=== PATIENT | male | born 1945 | race Caucasian/White ===

== ENCOUNTER 2017-02-08 15:17 | Emergency (ER) | payer MEDICARE, BC ==
[2017-02-08] MEDS ORDERED: Bupivacaine 0.5% 30 ML SDV INFILT ONE (16:01)
[2017-02-08 16:51] VITALS: BP 141/73
--- NOTE | 2017-02-08 16:55 | EDM.PDOC ---
[id number] 4d CUT OFF TIP OF FINGER Time Seen by Provider: 02/08/17 16:00 Source of Information: Reports: Patient History Limitations: Reports: No Limitations - History of Present Illness INITIAL COMMENTS - FREE TEXT/NARRATIVE: 72-year-old male cut the end of his middle finger of the left hand off with a band saw. It happened within the last hour. Total circumferential laceration is 3 cm, the distal finger is completely amputated. Onset: Today Location: Reports: Upper Extremity, Left Severity: Moderate Associated Symptoms: Reports: No Other Symptoms - Related Data Allergies Allergy/AdvReac Type Severity Reaction Status Date / Time iodine Allergy Hives Verified 01/15/15 08:22 shellfish derived Allergy Hives Verified 08/03/13 07:42 Home Meds: Home Meds Aspirin 325 mg PO DAILY 07/25/13 [History] Clopidogrel [Plavix] 75 mg PO DAILY 07/25/13 [History] Ezetimibe [Zetia] 10 mg PO DAILY 07/25/13 [History] Metoprolol Succinate [Toprol XL] 25 mg PO DAILY 07/25/13 [History] atorvaSTATin [Lipitor] 40 mg PO BEDTIME 07/25/13 [History] Past Medical History Endocrine/Metabolic History: Reports: Diabetes, Type II - Past Surgical History Cardiovascular Surgical History: Reports: Coronary Artery Bypass Social & Family History - Tobacco Use Smoking Status *Q: Never Smoker Years of Tobacco use: 30 Used Tobacco, but Quit: Yes Month Tobacco Last Used: 05/2000 Second Hand Smoke Exposure: No - Alcohol Use Days Per Week of Alcohol Use: 0 - Recreational Drug Use Recreational Drug Use: No ED ROS GENERAL - Review of Systems Review Of Systems: ROS reveals no pertinent complaints other than HPI. ED EXAM, SKIN/RASH Exam: See Below Exam Limited By: No Limitations General Appearance: Alert, No Apparent Distress Respiratory/Chest: No Respiratory Distress Cardiovascular: Regular Rate, Rhythm Extremities: Other (Remainder of exam is limited to left hand. The patient has a complete amputation of the distal middle finger at the level of the mid fingernail just at the tip of the distal phalanx.) Course - Vital Signs Last Recorded V/S: Last Vital Signs Temp 97.5 F 02/08/17 15:30 Pulse 68 02/08/17 15:30 Resp 16 02/08/17 15:30 BP 141/73 H 02/08/17 15:30 Pulse Ox 97 02/08/17 15:30 - Orders/Labs/Meds Meds: Medications Discontinued Medications Generic Name Dose Route Start Last Admin Trade Name Kelvin PRN Reason Stop Dose Admin Bupivacaine HCl 30 ml 02/08/17 16:01 02/08/17 16:07 Marcaine 0.5% INFILT 02/08/17 16:02 30 ml ONETIME ONE Administration - Re-Assessments/Exams Free Text/Narrative Re-Assessment/Exam: 02/08/17 16:53 The distal finger was anesthetized with 0.5% Marcaine in a digital block fashion. The amputated piece of finger and the stump were washed thoroughly with saline, the distal piece of nail was removed from the nailbed, and using 8 4-0 Ethilon sutures the amputated piece was approximated on the end of the finger as close as possible to its natural position. The patient was placed on cephalexin 500 mg 3 times a day for the next 12 days, a tube gauze was placed over the finger after a covering of bacitracin and the patient will keep the stitches on for at least 2 weeks. A recheck later in the clinic this week may be worthwhile. Departure - Departure Time of Disposition: 17:04 Disposition: Home, Self-Care 01 Condition: Good Clinical Impression: Laceration of finger of left hand with damage to nail Qualifiers: Encounter type: initial encounter Finger: middle finger Foreign body presence: without foreign body Qualified Code(s): S61.313A - Laceration without foreign body of left middle finger with damage to nail, initial encounter - Discharge Information Instructions: Traumatic Finger Amputation Referrals: Bruce Salvador MD [Primary Care Provider] - Forms: ED Department Discharge Care Plan Goals: Keep wound covered and clean while healing. Take antibiotics 3 times a day until gone, and have the sutures removed in 2 weeks. Soak the finger in warm water once daily and continue daily aspirin. Use stronger pain medication if needed as prescribed. Return sooner if concerns of infection or not healing satisfactorily.
== END 2017-02-08 17:05 | disposition home or self-care (01) ==
LOC: JP.ED 15:17
DX: S61.313A Laceration without foreign body of left middle finger with damage to nail, initial encounter (principal); E11.9 Type 2 diabetes mellitus without complications; Z91.09 Other allergy status, other than to drugs and biological substances; Z91.013 Allergy to seafood; Z79.899 Other long term (current) drug therapy; Z95.1 Presence of aortocoronary bypass graft; W26.8XXA Contact with other sharp object(s), not elsewhere classified, initial encounter
CPT/HCPCS: 13132; 99283-25

== ENCOUNTER 2017-02-23 08:00 | Emergency (ER) | payer MEDICARE, BC ==
[2017-02-23 08:10] VITALS: BP 170/81
--- NOTE | 2017-02-23 08:28 | EDM.PDOC ---
ED HPI GENERAL MEDICAL PROBLEM - General Chief Complaint: Wound Recheck Stated Complaint: REMOVE STITCHES Time Seen by Provider: 02/23/17 08:28 Source of Information: Reports: Patient History Limitations: Reports: No Limitations - History of Present Illness INITIAL COMMENTS - FREE TEXT/NARRATIVE: pt returnd for stitch removal He has noted that the tip that was sewed back on looks dark. Duration: Day(s): Associated Symptoms: Reports: Other (pt is hre for stitch removal. ) Denies Pain Score (Numeric/FACES): 0 - Related Data Allergies Allergy/AdvReac Type Severity Reaction Status Date / Time iodine Allergy Hives Verified 02/23/17 08:09 shellfish derived Allergy Hives Verified 02/23/17 08:09 Home Meds: Home Meds Aspirin 325 mg PO DAILY 07/25/13 [History] Clopidogrel [Plavix] 75 mg PO DAILY 07/25/13 [History] Ezetimibe [Zetia] 10 mg PO DAILY 07/25/13 [History] Metoprolol Succinate [Toprol XL] 25 mg PO DAILY 07/25/13 [History] atorvaSTATin [Lipitor] 40 mg PO BEDTIME 07/25/13 [History] Past Medical History Endocrine/Metabolic History: Reports: Diabetes, Type II - Infectious Disease History Infectious Disease History: Reports: Chicken Pox, Measles, Mumps - Past Surgical History Cardiovascular Surgical History: Reports: Coronary Artery Bypass Social & Family History - Tobacco Use Smoking Status *Q: Former Smoker Years of Tobacco use: 30 Used Tobacco, but Quit: Yes Month Tobacco Last Used: 05/2000 Second Hand Smoke Exposure: No - Alcohol Use Days Per Week of Alcohol Use: 0 - Recreational Drug Use Recreational Drug Use: No ED ROS GENERAL - Review of Systems Review Of Systems: See Below Constitutional: Reports: No Symptoms HEENT: Reports: No Symptoms Musculoskeletal: Reports: Other ( stitches to be removed from the left middle finger. ) ED EXAM, SKIN/RASH Exam: See Below Text/Narrative:: pt arrived with part of the flap that was sewed back on turning black and he needs the stitches removed. Exam Limited By: No Limitations General Appearance: Alert Extremities: Other (left middle finger has stitches to be removed. the flap that was sewd back on lookd dark and is slightly smelly. There is no pus like drainage. ) Course - Vital Signs Last Recorded V/S: Last Vital Signs Temp 35.4 C 02/23/17 08:15 Pulse 65 02/23/17 08:15 Resp 16 02/23/17 08:15 BP 170/81 H 02/23/17 08:15 Pulse Ox 96 02/23/17 08:15 - Re-Assessments/Exams Free Text/Narrative Re-Assessment/Exam: 02/23/17 08:34 stitches were removed without difficulty. Pt was advised to soak twice daily and the dark area will gradually peel off. Departure - Departure Time of Disposition: 08:27 Disposition: Home, Self-Care 01 Condition: Fair Clinical Impression: Visit for suture removal - Discharge Information Instructions: Suture Removal, Care After Referrals: Bruce Salvador MD [Primary Care Provider] - Forms: ED Department Discharge Care Plan Goals: soak twice daily and gradually allow the dark looking area to peal off.
== END 2017-02-23 08:34 | disposition home or self-care (01) ==
LOC: JP.ED 08:00
DX: S61.313D Laceration without foreign body of left middle finger with damage to nail, subsequent encounter (principal); W31.2XXD Contact with powered woodworking and forming machines, subsequent encounter; W45.8XXD Other foreign body or object entering through skin, subsequent encounter
CPT/HCPCS: 99282

== ENCOUNTER 2021-01-03 11:32 | Emergency (ER) | payer BC, MEDICARE, OTHER | END 2021-01-03 13:00 | disposition left against medical advice (07) | LOC: JP.ED 11:32 | DX: Z53.21 Procedure and treatment not carried out due to patient leaving prior to being seen by health care provider (principal) ==

== ENCOUNTER 2021-08-26 18:46 | Emergency (ER) | payer MEDICARE ==
[2021-08-26] MEDS ORDERED: Bacitracin Oint 1 GM U/D Packet TOP ONE (19:17)
[2021-08-26 19:19] VITALS: BP 162/73; PULSE 78
[2021-08-26] MEDS ORDERED: ceFAZolin 1 GM Vial IM ONE (19:36)
[2021-08-26] MEDS ORDERED: Diphtheria,Pertussis(Acell),Tetanus Vaccine 0.5 ML Syringe IM ONE (19:38)
== END 2021-08-26 20:31 | disposition home or self-care (01) ==
LOC: JP.ED 18:46
DX: S68.522A Partial traumatic transphalangeal amputation of left thumb, initial encounter (principal); E11.9 Type 2 diabetes mellitus without complications; Z23 Encounter for immunization; Z91.013 Allergy to seafood; Z88.8 Allergy status to other drugs, medicaments and biological substances; W27.0XXA Contact with workbench tool, initial encounter
CPT/HCPCS: 73140-26-FA; 73140-FA; 90471; 90715; 96372; 99283; J0690

== ENCOUNTER 2022-09-27 15:09 | Emergency (ER) | payer MEDICARE ==
[2022-09-27 15:59] VITALS: PULSE 36
[2022-09-27 16:49] VITALS: BP 135/51
[2022-09-27 16:59] LABS: ESTIMATED GFR 56 mL/min (>60); TROPONIN I HIGH SENSITIVITY 13.8 pg/mL (<=60.3)
== END 2022-09-27 17:41 | disposition home or self-care (01) ==
LOC: JP.ED 15:09
DX: R10.13 Epigastric pain (principal); I10 Essential (primary) hypertension; I25.10 Atherosclerotic heart disease of native coronary artery without angina pectoris; E11.9 Type 2 diabetes mellitus without complications; Z87.891 Personal history of nicotine dependence; Z79.899 Other long term (current) drug therapy; Z91.030 Bee allergy status; Z91.041 Radiographic dye allergy status
CPT/HCPCS: 36415; 80053; 83605; 84484; 85025; 93005; 99284

== ENCOUNTER 2022-12-05 14:07 | Emergency (ER) | payer MEDICARE ==
[2022-12-05 14:39] LABS: BASOPHILS ABSOLUTE AUTO 0.04 K/uL (0.00-0.10); BASOPHILS PERCENT AUTO 0.5 % (0.1-1.3); EOSINOPHILS ABSOLUTE AUTO 0.07 K/uL (0.00-0.40); EOSINOPHILS PERCENT AUTO 0.9 % (0.0-5.4); HEMATOCRIT 30.8 % (38.4-49.7); HEMOGLOBIN 9.9 g/dL (12.9-16.9); IMMATURE GRAN ABSOLUTE AUTO 0.04 K/uL (0.00-0.23); IMMATURE GRAN PERCENT AUTO 0.5 % (0.0-0.7); MEAN CORPUSCULAR HEMOGLOBIN 30.5 pg (31.6-35.5); MEAN CORPUSCULAR HGB CONC 32.1 g/dL (31.6-35.5); MEAN CORPUSCULAR VOLUME 94.8 fL (81.4-99.0); MONOCYTES ABSOLUTE AUTO 0.55 K/uL (0.20-0.90); MONOCYTES PERCENT AUTO 7.2 % (3.3-12.6); NEUTROPHILS ABSOLUTE AUTO 5.65 K/uL (1.0-7.6); NEUTROPHILS PERCENT AUTO 73.9 % (40.0-78.1); PLATELET COUNT,PLT 240 K/uL (130-375); RED BLOOD CELL COUNT 3.25 M/uL (4.14-5.76); WHITE BLOOD CELL COUNT,WBC 7.7 K/uL (3.2-11.0)
[2022-12-05 15:03] LABS: CALCIUM 8.7 mg/dL (8.5-10.1); CREATININE 1.3 mg/dL (0.8-1.3); EST CRCL DRUG DOSING (CG) 44.58 mL/min; POTASSIUM,K 4.8 mmol/L (3.6-5.2); TROPONIN I HIGH SENSITIVITY 21.9 pg/mL (<=60.3)
[2022-12-05 15:05] LABS: ANION GAP 12.8 mmol/L (5.0-14.0)
[2022-12-05 15:11] VITALS: BP 105/46; PULSE 84
== END 2022-12-05 15:50 | disposition home or self-care (01) ==
LOC: JP.ED 14:07
DX: R07.89 Other chest pain (principal); I25.10 Atherosclerotic heart disease of native coronary artery without angina pectoris; E78.00 Pure hypercholesterolemia, unspecified; I10 Essential (primary) hypertension; E11.9 Type 2 diabetes mellitus without complications; Z91.030 Bee allergy status; Z91.041 Radiographic dye allergy status; Z79.02 Long term (current) use of antithrombotics/antiplatelets; Z87.891 Personal history of nicotine dependence
CPT/HCPCS: 36415; 80048; 84484; 85025; 93005; 99285

== ENCOUNTER 2025-07-12 15:50 | Inpatient (IN) | payer MEDICARE ==
[2025-07-12] MEDS: Diltiazem 100 MG in Sodium Chloride 0.9% 100 ML IV SCH (16:49)
[2025-07-12] MEDS: Diltiazem 25 MG/5 ML SDV IVPUSH ONE (16:49)
[2025-07-12 17:11] LABS: BASOPHILS ABSOLUTE AUTO 0.06 K/uL (0.00-0.10); BASOPHILS PERCENT AUTO 0.8 % (0.1-1.3); EOSINOPHILS ABSOLUTE AUTO 0.25 K/uL (0.00-0.40); EOSINOPHILS PERCENT AUTO 3.3 % (0.0-5.4); IMMATURE GRAN ABSOLUTE AUTO 0.03 K/uL (0.00-0.23); IMMATURE GRAN PERCENT AUTO 0.4 % (0.0-0.7); LYMPHOCYTES ABSOLUTE AUTO 2.46 K/uL (0.8-3.3); LYMPHOCYTES PERCENT AUTO 32.0 % (11.4-47.7); MONOCYTES ABSOLUTE AUTO 0.74 K/uL (0.20-0.90); MONOCYTES PERCENT AUTO 9.6 % (3.3-12.6); NEUTROPHILS ABSOLUTE AUTO 4.14 K/uL (1.0-7.6); NEUTROPHILS PERCENT AUTO 53.9 % (40.0-78.1); PLATELET COUNT,PLT 350 K/uL (130-375); RED BLOOD CELL COUNT 4.87 M/uL (4.14-5.76); WHITE BLOOD CELL COUNT,WBC 7.7 K/uL (3.2-11.0)
[2025-07-12 17:25] LABS: A/G RATIO 1.0 (1.2-2.2); ALANINE AMINOTRANSFERASE,ALT 29 U/L (12-78); ASPARTATE AMNIOTRANSFERASE,AST 19 U/L (15-37); BILIRUBIN TOTAL 0.5 mg/dL (0.2-1.0); BLOOD UREA NITROGEN,BUN 34 mg/dL (7-18); CARBON DIOXIDE,CO2 26 mmol/L (21-32); CHLORIDE,CL 100 mmol/L (100-108); CREATININE 1.5 mg/dL (0.8-1.3); EST CRCL DRUG DOSING (CG) 36.73 mL/min; ESTIMATED GFR 46 mL/min (>60); GLUCOSE RANDOM 132 mg/dL (74-106); POTASSIUM,K 4.2 mmol/L (3.6-5.2); PROTEIN TOTAL,TP 8.2 g/dL (6.4-8.2); SODIUM,NA 137 mmol/L (140-148); TROPONIN I HIGH SENSITIVITY 17.4 pg/mL (<=60.3)
[2025-07-13] MEDS ORDERED: Magnesium Hydroxide 400 MG/5 ML Susp 30 ML Cup PO PRN (07:48)
[2025-07-13] MEDS ORDERED: Sennosides/Docusate Sodium 50-8.6 MG Tab PO PRN (07:48)
[2025-07-13] MEDS ORDERED: Ondansetron 4 MG Tab.DIS PO PRN (07:48)
[2025-07-13] MEDS ORDERED: Ondansetron 4 MG/2 ML SDV IV PRN (07:48)
[2025-07-13 09:00] LABS: TROPONIN I HIGH SENSITIVITY 4119.5 pg/mL (<=60.3)
[2025-07-13] MEDS: Heparin Sodium 5,000 Units/ML Vial IVPUSH ONE (09:45)
[2025-07-14 06:07] LABS: BLOOD UREA NITROGEN,BUN 29.0 mg/dL (7-18); CARBON DIOXIDE,CO2 25.0 mmol/L (21-32); CHLORIDE,CL 106.0 mmol/L (100-108); CREATININE 1.5 mg/dL (0.8-1.3); EST CRCL DRUG DOSING (CG) 36.87 mL/min; ESTIMATED GFR 46.0 mL/min (>60); GLUCOSE RANDOM 133.0 mg/dL (74-106); POTASSIUM,K 4.2 mmol/L (3.6-5.2); SODIUM,NA 140.0 mmol/L (140-148)
[2025-07-14 06:12] LABS: TROPONIN I HIGH SENSITIVITY 1217.7 pg/mL (<=60.3)
[2025-07-14 08:48] VITALS: PULSE 83
[2025-07-14 10:11] VITALS: BP 136/70
== END 2025-07-14 11:14 | DRG 282 ==
LOC: JP.ED 15:50 → JP.ICU 18:39
PROVIDERS: ADMIT Internal Medicine; ATTEND Internal Medicine
DX: I48.0 Paroxysmal atrial fibrillation (principal); I21.4 Non-ST elevation (NSTEMI) myocardial infarction; E11.9 Type 2 diabetes mellitus without complications; I25.118 Atherosclerotic heart disease of native coronary artery with other forms of angina pectoris; Z91.030 Bee allergy status; Z91.041 Radiographic dye allergy status; Z98.890 Other specified postprocedural states; Z95.1 Presence of aortocoronary bypass graft; Z95.5 Presence of coronary angioplasty implant and graft
CPT/HCPCS: 36415; 71045; 71045-26; 80048; 80053; 83735; 84484; 85025; 85730; 93005; 93010; 99223; 99232; 99239; A9270-GY; J0153; J1163; J1644; J3490